=== PATIENT | male | born 1980 | race Caucasian/White ===

== ENCOUNTER → 2017-04-11 | Outpatient (CLI) | payer BC ==
--- NOTE | 2017-04-11 11:59 | EST ---
DATE OF SERVICE: 04/11/2017 AGE: 36Y SEX: M HT: 72" WT: 290 lbs. Protocol Alex: X Other: Stress Stage: 3 Dur. of Exercise: 9:22 *Heart Rate Blood Pressure *Rest: 90 Rest: 127/86 * *Max. Achieved: 168 Maximum BP: 187/82 85% PMHR: 156 100% PMHR: 183 *METS: 10.9 INDICATIONS: Chest pain. MEDICATIONS: Prevacid, Percocet, allergy pill. STRESS DATA: Pretesting physical examination showed a heart rate of 90, pressure is 127/86mmHg. Baseline EKG shows sinus rhythm. The patient exercised on the treadmill according to Alex protocol for a total of 9 minutes and achieved 11 of METs with max heart rate was 168, which is about 91% of maximum predicted heart rate. Maximum blood pressure was 187/82 mmHg. Clinically, the patient did not have any symptoms of chest pain or discomfort during the testing or in the recovery and the EKG did not show any significant ST or T-wave abnormalities consistent with ischemia. CONCLUSION: 1. Excellent exercise capacity. 2. Normal EKG in response to exercise. 3. Essentially normal exercise treadmill stress test for this gentleman.
== END | disposition home or self-care (01) ==
LOC: RADNMMAIN 10:39
PROVIDERS: ATTEND Internal Medicine
DX: R07.9 Chest pain, unspecified (principal)
CPT/HCPCS: 93017

== ENCOUNTER → 2018-08-25 | Outpatient (CLI) | payer BC ==
[2018-08-25 14:32] VITALS: BP 138/81; PULSE 79; RESP 18
--- NOTE | 2018-08-26 07:40 | P.PAINCN ---
History of Present Illness - Reason for Consult Consult date: 08/25/18 - History of Present Illness This is the initial consultation visit for this 77 years old male with a chronic history of severe low back pain with radiation to the right lower extremity, the pain started 3 years ago on his been constant all the time, aggravated with any activity, he feels constant pain associated with some burning sensation in the right lower extremity, he reports that he had previous back injury when he was in high school he used to play football, he had an incident of back pain, which was improved with the medication treatment, 3 years ago he started having the pain without any initiating event, the intensity of the pain as 6/10 increased to 9/10 with any activity, his been on medication management Percocet 10/325 every 8 hours, and this medication helping to some degree but he is looking for a better way to control the pain, he denies any motor or sensory deficit he denies any change in the bowel movement or urination, he denies any fever or night sweats. Past Medical History Past Medical History: No Reported History History of Any Multi-Drug Resistant Organisms: None Reported Past Surgical History: No Surgical Hx Reported Past Anesthesia/Blood Transfusion Reactions: No Reported Reaction Smoking Status: Never smoker Medications and Allergies Home Medications Medication Instructions Recorded Confirmed Type ALPRAZolam [Xanax] 1 tab PO HS 08/25/18 08/25/18 History Lansoprazole [Prevacid] 1 tab PO DIRECTED 08/25/18 08/25/18 History oxyCODONE-APAP 10-325MG [Percocet 1 tab PO TID 08/25/18 08/25/18 History 10-325 mg] Allergies Allergy/AdvReac Type Severity Reaction Status Date / Time No Known Allergies Allergy Verified 08/25/18 14:17 Physical Exam Vitals: Vital Signs Pulse Resp BP Pulse Ox 08/25/18 14:22 79 18 138/81 98 Social history : not smoker , NO ETOH , NO Illegal drugs use . Review of Systems : 1- Constitutional : no chills , no fever , no night sweats , 2- Ears : no ear discharge , no change in hearing 3-Nose, Mouth ,Throat ; no bleeding gums, no sore throat , no epistaxis , 4-Cardiovascular : Denies chest pain, , no orthopnea , no palpitation 5-Respiratory : Denies cough , no dyspnea , no hemoptysis 6-Gastrointestinal :, no change in bowel habits , no coffee- ground emesis . 7-Genitourinary : No hematuria , no discharge , no incontinence, 8-Musculoskeletal : No gait dysfunction , report low back pain with radiation to the right lower extremity 9- Neurological : no ataxia , no tremor , no sezure , 10-Psychatric , no suicidal ideation no hallucination 11- Endocrine : no cold intolerence , no polyuria , no polydypsia , 12-Hematologic : no easy bleeding , no easy brusing , 13-Allergic / immunology : no angioedema , no wheezing ,no allergic rhinitis 14-Integumentary : no brttle nails , no change hair / nails , no foot/leg ulcers . Physical Examinations : 1-Constitutional : Cooperative , not in acute distress . 2-HEENT : nech ; supple , no Lymphadenopathy , no Thyromegaly , :eyes , no icterus, no photophobia . ENT : , normal oropharynx , no Thrush 3- Respiratory : Chest clear to auscultations Bilaterally , no wheezing . 4- Cardiovascular : regular rate and rhythem , S1 , S2 , no S3 , no S4. 5- Gastrointestinal: abdomen soft no tenderness , no organomegally . 6- Genitourinary : Defferred . 7-Integumentary : No cellulitis , no ulcers , normal skin turgor , no cyanotic . 8- neurologic : Cranial nerve II to XII intact , no focal neurological deffecit 9-psychatric : alert , oriented X 3 , appropriate affect , intact judgment and insight . 10-Lymphatic : no Lymphadenopathy. 11- musculoskeltal: normal gait Lumber spine moter stegnth lower extremities ,thigh and legs 5/5 Right side , 5/5 Left side deep tendon reflexes : normal Knee Jerk , normal ankle Jerk Negative lumber facet Loading Test Range of motion of the lumbar spine Flexion 30 degrees, extension 10 degrees strait leg raising test , positive at 30 degree Right lower extremity, negative on the left side Fabere test positive RT and negative LT . Results Comments: MRI of the lumbar spine L5-S1 disc herniation Assessment and Plan Plan: Assessment and plan= lumbar radiculopathy at right L5-S1 dermatomal distribution , lumbar disc herniation. Patient will be good candidate, to have right- sided L5-S1 transforaminal epidural steroid injection .under fluoroscopy guidance Time with Patient: Greater than 30 PQRS Measure Charge Sheet Measure #130: Documentation of Current Meds in Medical Chart: Patient's medications documented in chart Measure #226: Tobacco Use: Screen & Cessation Intervention: Pt not a tobacco user Measure #111: Pneumonia Vaccination: Pneumococcal vaccine NOT administered or previously given Measure #47: Advance Care Plan: Advance care planning discussed & documented, pt chose/unable to give Measure #412: Opioid Treatment Agreement: No documentation of signed opioid treatment agreement Measure #408: Opioid Therapy Follow-up Evaluation: Patient had NO f/u eval minimum every 3 months during opioid therapy Measure #317: Preventitive Care & Scrn High Bld Press & F/U: Pre-hypertensive or hypertensive BP documented, pt will f/u with PCP Measure #128: Body Mass Index (BMI) Screening & Follow-up: BMI documented ABOVE normal parameters - f/u documented Measure #131: Pain Assessment & Follow-up: Pain positive & plan documented, Follow-up scheduled Measure #431: Unhealthy Alcohol Use Preventative Care & Scrn: Patient not identified as an unhealthy alcohol user PQRS Narrative: Smoking Status Never smoker Do You Want the Pneumonia No Vaccine AT THIS TIME? Blood Pressure 138/81 Pain Intensity [Generalized] 7 Scale Used Numeric (1 - 10) Hx Alcohol Use (MH) No Home Medications: Ambulatory Orders ALPRAZolam [Xanax] 1 tab PO HS 08/25/18 Lansoprazole [Prevacid] 1 tab PO DIRECTED 08/25/18 oxyCODONE-APAP 10-325MG [Percocet 10-325 mg] 1 tab PO TID 08/25/18
== END | disposition home or self-care (01) ==
LOC: PNWHC3 13:04
PROVIDERS: ATTEND Specialist
DX: M51.17 Intervertebral disc disorders with radiculopathy, lumbosacral region (principal); Z79.899 Other long term (current) drug therapy; Z79.891 Long term (current) use of opiate analgesic
CPT/HCPCS: 99211

== ENCOUNTER → 2018-09-14 | Day surgery (SDC) | payer BC ==
[2018-09-09 15:02] VITALS: BMI 37.2
[~2018-09-14] MED LIST: SODIUM CHLORIDE 0.9% 500 ML 500 ML IV ONE
[2018-09-14 06:55] VITALS: RESP 20; TEMP 97.9
--- NOTE | 2018-09-14 07:33 | P.PCN ---
Date of Procedure: 09/14/18 Procedure(s) Performed: DESCRIPTION OF PROCEDURE(S): PREOPERATIVE DIAGNOSIS: Lumbar radiculopathy POSTOPERATIVE DIAGNOSIS: Lumbar radiculopathy PROCEDURE 1. Transforaminal epidural steroid injection under fluoroscopic guidance RIGHT L4 5 2. Lumbar epidurogram ANESTHESIA: Local with 1% lidocaine 3 ml PROCEDURE INDICATION: The patient with low back pain and radiculopathy symptoms unresponsive to conservative treatment. PROCEDURE DESCRIPTION / TECHNIQUE: The patient was seen and identified in the preoperative area. Risks, benefits, complications, and alternatives were discussed with the patient. The patient agreed to proceed with the procedure and signed the consent. IV was started, and vital signs were stable. Patient was taken to the OR and time out was completed. The patient was placed in the prone position on procedure table and a pillow was placed under the abdomen to reduce lumbar lordosis. The lumbosacral area was prepped and draped in the usual sterile fashion. Vital signs were closely monitored during the procedure. Conscious sedation was used. Using oblique fluoroscopy, the chin of the ``Bart dog at RIGHT L4 pedicle and the skin and deeper tissues just below was localized with 1% lidocaine. Subsequently, a 22-gauge 3.5-inch spinal needle was advanced under a tunneled view fluoroscopic guidance just underneath the chin of the ``Bart dog RIGHT L4 Under lateral fluoroscopy, the needle was then advanced to the posterior border of the L4 5 interforaminal space. After negative aspiration of CSF and blood and with no paresthesias, 1 mL of Omnipaque-240 contrast dye was injected excellent epidurogram and outlining L2 nerve root. Subsequently, of the 10ml solution consisting of 10mg/ml dexamethasone with 1 ml PF normal saline, and 1 ml 0.25% marcaine , 3 ml injected at L4 5 space. At the end of the procedure , skin was cleansed, and bandages were applied. COMPLICATIONS: None COMMENTS: DISPOSITION / PLANS: The patient was placed in a supine position and transferred to the recovery area in a stable condition for observation. There was no evidence of lower extremity motor or sensory deficit after the procedure. Patient was discharged from the recovery room after meeting discharge criteria. Home discharge instructions were given to the patient by the staff. The patient was reexamined prior to discharge. Have the patient follow-up in the clinic to evaluate for further injections are further reaching
[2018-09-14 08:18] VITALS: BP 133/83; PULSE 71
--- NOTE | 2018-09-14 09:18 | FL ---
EXAMINATION TYPE: FL guided pain mgmt statistic DATE OF EXAM: 09/14/2018 HISTORY: LUMBAR TRANSFORAMINAL EPIDURAL STERIOD INJECTION 13 SEC FLUORO, 1 IMAGE SCANNED
== END ==
LOC: ORPAIN 06:35
PROVIDERS: ATTEND Hospitalist
DX: M51.16 Intervertebral disc disorders with radiculopathy, lumbar region (principal)
CPT/HCPCS: 64483; J1100; Q9966; 64484

== ENCOUNTER 2018-10-13 06:07 | Day surgery (SDC) | payer BC ==
[2018-10-08 15:08] VITALS: BMI 37.2
[~2018-10-13 06:07] MED LIST changes: -SODIUM CHLORIDE 0.9% 500 ML 500 ML IV ONE; +SODIUM CHLORIDE 0.9% 500 ML 500 ML IV SCH
[2018-10-13 06:48] VITALS: TEMP 97.8
--- NOTE | 2018-10-13 07:41 | P.PCN ---
Date of Procedure: 10/13/18 Procedure(s) Performed: PREOPERATIVE DIAGNOSIS:1- Lumbar radiculopathy. 2-lumbar herniated disc disease POSTOPERATIVE DIAGNOSIS: Same as pre-operative diagnosis PROCEDURE 1. Transforaminal epidural steroid injection under fluoroscopic guidance RIGHT L5-S1 2. Lumbar epidurogram ANESTHESIA: Local with 1% lidocaine 3 ml PROCEDURE INDICATION: The patient with low back pain and radiculopathy symptoms unresponsive to conservative treatment. PROCEDURE DESCRIPTION / TECHNIQUE: The patient was seen and identified in the preoperative area. Risks, benefits, complications, and alternatives were discussed with the patient. The patient agreed to proceed with the procedure and signed the consent. IV was started, and vital signs were stable. Patient was taken to the OR and time out was completed. The patient was placed in the prone position on procedure table and a pillow was placed under the abdomen to reduce lumbar lordosis. The lumbosacral area was prepped and draped in the usual sterile fashion. Vital signs were closely monitored during the procedure. Conscious sedation was used. Using oblique fluoroscopy, the chin of the ``Bart dog at RIGHT L5 pedicle and the skin and deeper tissues just below was localized with 1% lidocaine. Subsequently, a 22-gauge 5-inch spinal needle was advanced under a tunneled view fluoroscopic guidance just underneath the chin of the ``Bart dog RIGHT L5 Under lateral fluoroscopy, the needle was then advanced to the posterior border of the L5-S1 interforaminal space. After negative aspiration of CSF and blood and with no paresthesias, 1 mL of Omnipaque-240 contrast dye was injected excellent epidurogram and outlining nerve root. Subsequently, of the 10ml solution consisting of 40 mg depo-Medrol with 1 ml PF normal saline, injected at L5-S1 space. At the end of the procedure, skin was cleansed, and bandages were applied. COMPLICATIONS: None DISPOSITION / PLANS: The patient was placed in a supine position and transferred to the recovery area in a stable condition for observation. There was no evidence of lower extremity motor or sensory deficit after the procedure. Patient was discharged from the recovery room after meeting discharge criteria. Home discharge instructions were given to the patient by the staff. The patient was reexamined prior to discharge. Have the patient follow-up in the clinic to evaluate for further injections are further reaching
[2018-10-13] MEDS ORDERED: IV FLUID CONTINUATION 1,000 ML IV ONE (07:43)
[2018-10-13 07:48] VITALS: RESP 18
[2018-10-13 07:59] VITALS: BP 137/73; PULSE 63
--- NOTE | 2018-10-13 08:53 | FL ---
Fluoroscopy HISTORY: Pain 8 seconds fluoroscopy time supplied to the referring clinician. 1 intraoperative C-arm images docume nt the procedure. See dictated report from anesthesia.
== END 2018-10-13 08:00 | disposition home or self-care (01) ==
LOC: ORPAIN 06:07
PROVIDERS: ATTEND Specialist
DX: M51.16 Intervertebral disc disorders with radiculopathy, lumbar region (principal)
CPT/HCPCS: 64483; J1030; Q9966; 62323

== ENCOUNTER → 2018-11-23 | Outpatient (CLI) | payer BC ==
[2018-11-23 14:45] VITALS: BP 118/87; PULSE 94; RESP 16
--- NOTE | 2018-11-24 18:34 | P.PN ---
Subjective Progress Note Date: 11/23/18 This is the follow-up visit for this 38 years old male with a chronic history of severe low back pain with radiation to the right lower extremity,he is diagnosed with lumbar radiculopathy ,we have done right-sided transforaminal epidural steroid injection patient get excellent pain relief, and he is here for follow-up visit He continues to use Percocet 10/325 every 6 hours when necessary and he is getting prescription refills from his primary care, he denies any motor or sensory deficit he denies any change in bowel movement or urination Physical Examinations : 1-Constitutional : Cooperative , not in acute distress . 2-HEENT : nech ; supple , no Lymphadenopathy , no Thyromegaly , :eyes , no icterus, no photophobia . ENT : , normal oropharynx , no Thrush 3- Respiratory : Chest clear to auscultations Bilaterally , no wheezing . 4- Cardiovascular : regular rate and rhythem , S1 , S2 , no S3 , no S4. 5- Gastrointestinal: abdomen soft no tenderness , no organomegally . 6- Genitourinary : Defferred . 7-Integumentary : No cellulitis , no ulcers , normal skin turgor , no cyanotic . 8- neurologic : Cranial nerve II to XII intact , no focal neurological deffecit 9-psychatric : alert , oriented X 3 , appropriate affect , intact judgment and insight . 10-Lymphatic : no Lymphadenopathy. 11- musculoskeltal: normal gait Lumber spine moter stegnth lower extremities ,thigh and legs 5/5 Right side , 5/5 Left side deep tendon reflexes : normal Knee Jerk , normal ankle Jerk Negative lumber facet Loading Test Range of motion of the lumbar spine Flexion 30 degrees, extension 10 degrees strait leg raising test , positive at 30 degree Right lower extremity, negative on the left side Fabere test positive RT and negative LT . Results Comments: MRI of the lumbar spine L5-S1 disc herniation Assessment and Plan Plan: Assessment and plan= lumbar radiculopathy at right L5-S1 dermatomal distribution , lumbar disc herniation. Patient will be good candidate, to have repeat right-sided L5-S1 transforaminal epidural steroid injection .under fluoroscopy guidanc - PQRS measures = - Patient's medications are documented in the chart. -Tobacco use is negative and counseling.Given. -Patient's has not received pneumococcal vaccine. -Advanced care planning discussed, patient not eligible. -Opiate contract not signed -There is no need for medication refill -Pain positive and follow-up visit/procedure is scheduled. -Patient's blood pressure measured [ 118/87 ] , and documented in the record ,and patient will follow up with the primary care. -Patient's weight was measured and body mass index [ 39.8] above the normal limits and counseling was done. and patient instructed to follow-up with the primary care physician. -Patient was not identified as an unhealthy alcohol user Objective - Vital Signs Vital signs: Vital Signs Temp Pulse 94 11/23/18 14:42 Resp 16 11/23/18 14:42 BP 118/87 11/23/18 14:42 Pulse Ox 99 11/23/18 14:42 Intake & Output 11/23/18 11/24/18 11/24/18 18:59 06:59 18:59 Weight 140.614 kg
== END ==
LOC: PNWHC3 14:00
PROVIDERS: ATTEND Specialist
DX: M51.17 Intervertebral disc disorders with radiculopathy, lumbosacral region (principal); Z79.891 Long term (current) use of opiate analgesic
CPT/HCPCS: 99211

== ENCOUNTER 2018-12-03 06:15 | Day surgery (SDC) | payer BC ==
[2018-12-02 12:08] VITALS: BMI 39.8
[2018-12-03 06:47] VITALS: RESP 16; TEMP 97.6
[2018-12-03] MEDS ORDERED: LIDOCAINE 1% 20 ML VIAL (10MG/ML) FOR IV START INTRADERMA ONE (06:53)
[2018-12-03] MEDS ORDERED: LACTATED RINGERS 1,000 ML IV ONE ×2 (06:53→07:27)
--- NOTE | 2018-12-03 07:20 | P.PCN ---
Date of Procedure: 12/03/18 Procedure(s) Performed: PREOPERATIVE DIAGNOSIS:1- Lumbar radiculopathy. 2-lumbar herniated disc disease POSTOPERATIVE DIAGNOSIS: Same as pre-operative diagnosis PROCEDURE 1. Transforaminal epidural steroid injection under fluoroscopic guidance RIGHT L5-S1 2. Lumbar epidurogram ANESTHESIA: Moderate Sedations with Vesred 2 mg ,and Fentanyle 100 mcg , and Local infiltration with 1% lidocaine 3 ml PROCEDURE INDICATION: The patient with low back pain and radiculopathy symptoms unresponsive to conservative treatment. PROCEDURE DESCRIPTION / TECHNIQUE: The patient was seen and identified in the preoperative area. Risks, benefits, complications, and alternatives were discussed with the patient. The patient agreed to proceed with the procedure and signed the consent. IV was started, and vital signs were stable. Patient was taken to the OR and time out was completed. The patient was placed in the prone position on procedure table and a pillow was placed under the abdomen to reduce lumbar lordosis. The lumbosacral area was prepped and draped in the usual sterile fashion. Vital signs were closely monitored during the procedure. Conscious sedation was used. To decrease patient"s anxiety. Using oblique fluoroscopy, the chin of the ``Bart dog at RIGHT L5 pedicle and the skin and deeper tissues just below was localized with 1% lidocaine. Subsequently, a 22-gauge 5-inch spinal needle was advanced under a tunneled view fluoroscopic guidance just underneath the chin of the ``Bart dog RIGHT L5 Under lateral fluoroscopy, the needle was then advanced to the posterior border of the L5-S1 interforaminal space. After negative aspiration of CSF and blood and with no paresthesias, 1 mL of Omnipaque-240 contrast dye was injected excellent epidurogram and outlining nerve root. Subsequently, of the 10ml solution consisting of 80 mg depo-Medrol with 1 ml PF normal saline, injected at L5-S1 space. At the end of the procedure, skin was cleansed, and bandages were applied. COMPLICATIONS: None DISPOSITION / PLANS: The patient was placed in a supine position and transferred to the recovery area in a stable condition for observation. There was no evidence of lower extremity motor or sensory deficit after the procedure. Patient was discharged from the recovery room after meeting discharge criteria. Home discharge instructions were given to the patient by the staff. The patient was reexamined prior to discharge. Have the patient follow-up in the clinic to evaluate for further injections are further reaching
[2018-12-03 07:47] VITALS: BP 116/73; PULSE 71
--- NOTE | 2018-12-03 13:52 | FL ---
Fluoroscopy INDICATION: Pain FINDINGS: Fluoroscopy time: 14 seconds. Images obtained: 2. IMPRESSIONS: 1. Documentation of fluoroscopy.
== END 2018-12-03 07:57 | disposition home or self-care (01) ==
LOC: ORPAIN 06:15
PROVIDERS: ATTEND Specialist
DX: M51.16 Intervertebral disc disorders with radiculopathy, lumbar region (principal); Z79.1 Long term (current) use of non-steroidal anti-inflammatories (NSAID)
CPT/HCPCS: 64483; J2250; J1030; J3010; Q9966; 99152

== ENCOUNTER → 2018-12-29 | Outpatient (CLI) | payer BC ==
[2018-12-29 11:22] VITALS: BP 132/97; PULSE 76; RESP 16; TEMP 97.8
--- NOTE | 2018-12-29 11:48 | P.PN ---
Subjective Progress Note Date: 12/29/18 Mr. Castro is a 38-year-old gentleman with chronic low back pain. He presents today as a follow-up. He has had a series of 3 transforaminal epidural steroid injection on the right side for his low back pain. He continues to complain of right-sided low back pain which occasionally shoots down the leg. He reports his pain is aggravated when he wakes up in the morning or try to roll out of bed he finds that the pain is worse at that time. He continues to work full- time. He denies any weakness in his right leg from the pain. He denies any bowel or bladder incontinence. He has been going through this for about 4 years. He has been on previous pain medications for many years and has been off them for at least 3 months now. He does not want low back that way. He has not seen a surgeon for his pain. He has been in physical therapy for greater than 6 weeks time. Objective - Exam General: Awake and alert oriented 3 no distress Respiratory exam: No audible wheezing no accessory muscle usage Cardiovascular exam: regular rate, palpable bilateral pulses, no lower extremity edema Abdominal exam: No distention nontender to palpation Cervical spine: Normal alignment, Spurling's negative, facet loading negative Lumbar spine: Loss of lumbar lordosis, normal alignment, tender to palpation over bilateral paraspinal muscles, facet loading is positive on the right. Straight leg raise is positive on the right at about 60 Sacroiliac joints: Nontender to palpation, MYLES is negative, Gaenselon negative Neuro exam: Normal sensation in bilateral upper extremities, deep tendon reflexes are 2+ bilateral upper extremities. Normal sensation in bilateral lower extremities. 1+ right Achilles compared to 2+ on the left. 1+ patellar reflex on the right compared to 2+ in the left. Psych exam: Cooperative, appropriate mood Assessment and Plan Assessment: #1 lumbar radiculopathy #2 lumbar spondylosis without myelopathy Plan: After examination and discussion with the patient I believe that we should attempt to do a diagnostic lumbar medial branch block at L4 5 and L5-S1 levels. I discussed with him that he may need to seek out surgical advice if this does not help. He has been in physical therapy and has been on chronic opioid medications without long-term relief. If he does not get relief from the diagnostic test that we should refer him to see a surgeon. If he does get relief I have discussed with him a three-step process to potentially do a radiofrequency ablation.
== END | disposition home or self-care (01) ==
LOC: PNWHC3 11:02
PROVIDERS: ATTEND Hospitalist
DX: G89.29 Other chronic pain (principal); M54.5 Low back pain; M47.26 Other spondylosis with radiculopathy, lumbar region; M40.56 Lordosis, unspecified, lumbar region; Z79.891 Long term (current) use of opiate analgesic
CPT/HCPCS: 99211

== ENCOUNTER 2019-01-11 06:17 | Day surgery (SDC) | payer BC ==
[2019-01-06 15:00] VITALS: BMI 38.5
[2019-01-11 06:35] VITALS: RESP 16; TEMP 97.8
[2019-01-11] MEDS ORDERED: LACTATED RINGERS 1,000 ML IV ONE (06:40)
--- NOTE | 2019-01-11 07:26 | P.PCN ---
Date of Procedure: 01/11/19 Procedure(s) Performed: PREOPERATIVE DIAGNOSIS : 1- Lumbar spondylosis with Facet Arthropathy without myelopathy . 2- Lumber radiculopathy POSTOPERATIVE DIAGNOSIS: 1- Lumbar spondylosis with Facet Arthropathy without myelopathy . 2- Lumber radiculopathy PROCEDURE: Diagnostic Right L3 -4 , L4 -5 , and L5-S1 medial branch block under fluoroscopy ANESTHESIA: moderate sedation with intravenous Versed 2 mg and Fentanyl 50 mcg. EBL: Minimal COMPLICATION: None. IV FLUIDS: 100 mL of normal saline. PROCEDURE INDICATION: Chronic low back pain secondary to Facet arthropathy unresponsive to conservative treatment. PROCEDURE DESCRIPTION: the patient was seen and identified in the preop holding area , risks and benefits and possible complications of the procedure and alternative were discussed with the patient, and the patient agreed to proceed with the procedure and signed the consent IV was started and vital signs monitored during the procedure and fluoroscopy was used to maximize the benefit and accuracy of the needle placement, and sedation was given to decrease patient anxiety, patient was taken to the procedure room and placed in prone position vital signs monitored in the back prepped with chlorhexidine X3 then under strict sterile technique using a right oblique fluoroscopy ,the junction of the transverse process and the superior articulating process of the right L3- 4 , L4- 5, and L5-S1 vertebra which corresponding to the fluoroscopy image of the eye of the Bart dog on the block side for the medial branches and subsequently , after local infiltration of skin and subcu tissuies with Ropivacaine 0.5 % , one mL at each level , then 22-gauge Quincke-type needles , 3 needle was used , each one of them placed at the junction of the base of the transverse process and the superior articular process at the appropriate level, and the needle was advanced until the periosteum contacted, needle placement confirmed with AP oblique and lateral view and after appropriate needle placement confirmed, and after negative aspiration for heme and CSF and there was no paresthesia 1-1/2 mL of Ropivacaine 0.5% mixed with 40 mg Depo-Medrol , then half mL injected at each level after negative aspiration . At the end of the procedure and the needles removed and a bandage applied after the skin was cleaned the cleaning solution patient taken to recovery room in stable condition and monitors in the recovery room for 20-30 minutes and discharged home in stable condition after discharge criteria met and patient will follow up with the pain clinic in 2-4 weeks . (Next time we should use 5 inches needles )
[2019-01-11] MEDS ORDERED: IV FLUID CONTINUATION 1,000 ML IV ONE (07:31)
[2019-01-11 07:45] VITALS: BP 113/73; PULSE 72
--- NOTE | 2019-01-11 08:00 | FL ---
EXAMINATION TYPE: FL guided pain mgmt statistic DATE OF EXAM: 01/11/2019 CLINICAL HISTORY: Low back pain. TECHNIQUE: Fluoroscopy. COMPARISON: None. FINDINGS: Fluoroscopic guidance was provided during pain relief procedure performed by Dr. Mccauley . A total of 8 seconds of fluoroscopic time was utilized during the procedure and two spot images ar e acquired. Images acquired shows needle localization of the lumbar spine at multiple levels. IMPRESSION: As Above.
== END 2019-01-11 08:11 | disposition home or self-care (01) ==
LOC: ORPAIN 06:17
PROVIDERS: ATTEND Specialist
DX: G89.29 Other chronic pain (principal); M47.26 Other spondylosis with radiculopathy, lumbar region; M51.36 Other intervertebral disc degeneration, lumbar region
CPT/HCPCS: 64493; 64494; 64495; J2250; J1030; J3010

== ENCOUNTER 2019-01-25 06:22 | Day surgery (SDC) | payer BC ==
[2019-01-21 09:43] VITALS: BMI 38.5
--- NOTE | 2019-01-25 06:47 | P.PCN ---
Date of Procedure: 01/25/19 Description of Procedure: PREOPERATIVE DIAGNOSIS : 1- Lumbar spondylosis with Facet Arthropathy without myelopathy . 2- Lumber radiculopathy POSTOPERATIVE DIAGNOSIS: 1- Lumbar spondylosis with Facet Arthropathy without myelopathy . 2- Lumber radiculopathy PROCEDURE: Diagnostic Right L3 -4 , L4 -5 , and L5-S1 medial branch block under fluoroscopy #2 ANESTHESIA: moderate sedation with intravenous Versed 2 mg and Fentanyl 50 mcg. EBL: Minimal COMPLICATION: None. IV FLUIDS: 100 mL of normal saline. PROCEDURE INDICATION: Chronic low back pain secondary to Facet arthropathy unresponsive to conservative treatment. 80% relief with first lumbar medial branch block of L3-L4, L4-L5, L5-S1. PROCEDURE DESCRIPTION: the patient was seen and identified in the preop holding area , risks and benefits and possible complications of the procedure and alternative were discussed with the patient, and the patient agreed to proceed with the procedure and signed the consent IV was started and vital signs monitored during the procedure and fluoroscopy was used to maximize the benefit and accuracy of the needle placement, and sedation was given to decrease patient anxiety, patient was taken to the procedure room and placed in prone position vital signs monitored in the back prepped with chlorhexidine X3 then under strict sterile technique using a right oblique fluoroscopy ,the junction of the transverse process and the superior articulating process of the right L3- 4 , L4 - 5, and L5-S1 vertebra which corresponding to the fluoroscopy image of the eye of the Bart dog on the block side for the medial branches and subsequently , after local infiltration of skin and subcutaneous tissue with Ropivacaine 0.5 % , one mL at each level ,then 22-gauge Quincke-type needles , 3 needle was used , each one of them placed at the junction of the base of the transverse process and the superior articular process at the appropriate level, and the needle was advanced until the periosteum contacted, needle placement confirmed with AP oblique and lateral view and after appropriate needle placement confirmed, and after negative aspiration for heme and CSF and there was no paresthesia 1-1/2 mL of Ropivacaine 0.5% mixed with 40 mg Depo-Medrol , then half mL injected at each level after negative aspiration At the end of the procedure and the needles removed and a bandage applied after the skin was cleaned the cleaning solution patient taken to recovery room in stable condition and monitors in the recovery room for 20-30 minutes and discharged home in stable condition after discharge criteria met and patient will follow up with the pain clinic in 2-4 weeks.
--- NOTE | 2019-01-25 06:50 | P.GSHP ---
History of Present Illness H&P Date: 01/25/19 38-year-old male presents for right lumbar medial branch blocks L3-L4, L4-L5, L5-S1. #2 of 2. 80% relief with first initial medial branch block. Physical Exam : CVS: Regular rate and rhythm, no peripheral edema Pulmonary: Nonlabored, no wheezing Plan: Proceed with procedures plan today. Schedule for right radio frequency ablation Past Medical History Past Medical History: Musculoskeletal Disorder Additional Past Medical History / Comment(s): back pain History of Any Multi-Drug Resistant Organisms: None Reported Past Surgical History: No Surgical Hx Reported Additional Past Surgical History / Comment(s): pain procedure Past Anesthesia/Blood Transfusion Reactions: No Reported Reaction Past Psychological History: No Psychological Hx Reported Smoking Status: Never smoker Past Alcohol Use History: Rare Past Drug Use History: None Reported - Past Family History Mother Family Medical History: No Reported History Medications and Allergies Home Medications Medication Instructions Recorded Confirmed Type ALPRAZolam [Xanax] 1 mg PO HS 08/25/18 01/25/19 History Lansoprazole [Prevacid] 30 mg PO DAILY PRN 08/25/18 01/25/19 History Citalopram Hydrobromide [CeleXA] 20 mg PO DAILY 10/08/18 01/25/19 History Acetaminophen [Tylenol] 1,000 mg PO DAILY PRN 11/23/18 01/25/19 History Meloxicam [Mobic] 15 mg PO DAILY PRN 11/23/18 01/25/19 History Cetirizine HCl/Pseudoephedrine 1 each PO DAILY 12/02/18 01/25/19 History [Zyrtec-D Tablet] Allergies Allergy/AdvReac Type Severity Reaction Status Date / Time No Known Allergies Allergy Verified 01/25/19 06:44
[2019-01-25 06:53] VITALS: TEMP 96.6
[2019-01-25] MEDS ORDERED: LACTATED RINGERS 1,000 ML IV ONE ×2 (07:00)
[2019-01-25] MEDS ORDERED: SODIUM CHLORIDE 0.9% 500 ML 500 ML IV SCH (07:00)
[2019-01-25] MEDS ORDERED: IV FLUID CONTINUATION 1,000 ML IV ONE (07:25)
[2019-01-25 07:29] VITALS: PULSE 67; RESP 16
--- NOTE | 2019-01-25 07:36 | FL ---
EXAMINATION TYPE: FL guided pain mgmt statistic DATE OF EXAM: 01/25/2019 FLUOROSCOPY Fluoroscopy time of 30 seconds was used during lumbar facet pain management procedure. 1 image/s doc ument/s the procedure.
[2019-01-25 07:42] VITALS: BP 123/77
== END 2019-01-25 08:00 | disposition home or self-care (01) ==
LOC: ORPAIN 06:22
PROVIDERS: ATTEND Anesthesiology
DX: G89.29 Other chronic pain (principal); M47.26 Other spondylosis with radiculopathy, lumbar region; M51.16 Intervertebral disc disorders with radiculopathy, lumbar region; Z79.899 Other long term (current) drug therapy
CPT/HCPCS: 64493; 64494; 64495; J2250; J3301; J3010; 99152

== ENCOUNTER → 2019-02-08 | Outpatient (CLI) | payer BC ==
[2019-02-08 10:51] VITALS: BP 143/94; PULSE 68; RESP 18
--- NOTE | 2019-02-08 11:11 | P.PAINPG ---
Subjective Progress Note Date: 02/08/19 Mr. Castro is a pleasant 38-year-old gentleman who presents today with chief complaint of back pain. He is status post 2 medial branch blocks in the right side and reports excellent relief from the medial branch blocks. He reports that his pain along low back and into the right buttock is was significantly improved with the injections. He is interested in moving forward the ablation. This point he is unchanged from previous visits. He denies any numbness or tingling into his foot or any weakness in his foot. He denies any bowel or bladder incontinence. He continues to use medications as prescribed by his primary care doctor. Objective - Vital Signs Vital signs: Vital Signs Temp Pulse 68 02/08/19 10:41 Resp 18 02/08/19 10:41 BP 143/94 02/08/19 10:41 Pulse Ox 95 02/08/19 10:41 Intake & Output 02/07/19 02/08/19 02/08/19 18:59 06:59 18:59 Weight 140.614 kg - Exam General: Awake and alert oriented 3 no distress Respiratory exam: No audible wheezing no accessory muscle usage Cardiovascular exam: regular rate, palpable bilateral pulses, no lower extremity edema Abdominal exam: No distention nontender to palpation Cervical spine: Normal alignment, Spurling's negative, facet loading negative Lumbar spine: Loss of lumbar lordosis, normal alignment, tender to palpation over bilateral paraspinal muscles, facet loading is positive right Straight leg raise is negative. Sacroiliac joints: Nontender to palpation, MYLES is negative, Gaenselon negative Neuro exam: Normal sensation in bilateral upper extremities, deep tendon refl exes are 2+ bilateral upper extremities. Normal sensation in bilateral lower extremities. Deep tendon reflexes are 2+ in lower extremities Psych exam: Cooperative, appropriate mood Assessment and Plan Assessment: #1 lumbar spondylosis without myelopathy #2 obesity Plan: At this point discussed radiofrequency ablation of the right lumbar medial branch blocks at the patient. I discussed the risks, benefits, and alternatives to the procedure. I advised him that he should participate in physical therapy after having the ablation in order to strengthen his lumbar spine. Patient is in agreement. We will give him a prescription for physical therapy after the ablation. We will schedule him for right-sided L3 4, C4 5, 51 ablation with sedation. PQRS Measure Charge Sheet Measure #130: Documentation of Current Meds in Medical Chart: Patient's medications documented in chart Measure #226: Tobacco Use: Screen & Cessation Intervention: Pt not a tobacco user Measure #47: Advance Care Plan: Advance care planning discussed & documented, pt chose/unable to give Measure #131: Pain Assessment & Follow-up: Pain positive & plan documented, Follow-up scheduled PQRS Narrative: Smoking Status Never smoker Do You Want the Pneumonia No Vaccine AT THIS TIME? Blood Pressure 143/94 Pain Intensity [Right Lower 2 Back] Scale Used Numeric (1 - 10) Hx Alcohol Use (MH) No Home Medications: Ambulatory Orders ALPRAZolam [Xanax] 1 mg PO HS 08/25/18 Lansoprazole [Prevacid] 30 mg PO DAILY PRN 08/25/18 Citalopram Hydrobromide [CeleXA] 20 mg PO DAILY 10/08/18 Acetaminophen [Tylenol] 1,000 mg PO DAILY PRN 11/23/18 Meloxicam [Mobic] 15 mg PO DAILY PRN 11/23/18 Cetirizine HCl/Pseudoephedrine [Zyrtec-D Tablet] 1 each PO DAILY 12/02/18 Controlled Substance Measures - Controlled Substance Measures Is patient prescribed a controlled substance at discharge?: No When asked, does pt state using other controlled substances?: No
== END ==
LOC: PNWHC3 10:31
PROVIDERS: ATTEND Hospitalist
DX: M47.816 Spondylosis without myelopathy or radiculopathy, lumbar region (principal); E66.9 Obesity, unspecified; Z79.899 Other long term (current) drug therapy; Z68.39 Body mass index [BMI] 39.0-39.9, adult
CPT/HCPCS: 99211

== ENCOUNTER 2019-02-22 08:14 | Day surgery (SDC) | payer BC ==
[2019-02-17 14:23] VITALS: BMI 39.8
[2019-02-22 08:31] VITALS: RESP 16; TEMP 95.6
[2019-02-22] MEDS ORDERED: IV FLUID CONTINUATION 1,000 ML IV ONE (08:36)
[2019-02-22] MEDS ORDERED: LIDOCAINE 1% 20 ML VIAL (10MG/ML) FOR IV START INTRADERMA ONE (08:36)
--- NOTE | 2019-02-22 08:39 | P.PCN ---
Date of Procedure: 02/22/19 Description of Procedure: PREOPERATIVE DIAGNOSIS: Lumbar Facet Arthropathy. POSTOPERATIVE DIAGNOSIS: Lumbar Facet Arthropathy. PROCEDURES : right Radiofrequency thermocoagulation, L3, L4, and L5 medial branch, with fluoroscopic guidance ANESTHESIA: IV sedation with versed and fentanyl and local infiltration with lidocaine 1% 10 ml EBL: Minimal PROCEDURE INDICATION: The patient with low back pain secondary to lumbar facet arthropathy who had more than 50% relief of pain with previous diagnostic lumbar medial branch block with local anesthetic. PROCEDURE DESCRIPTION / TECHNIQUE: The patient was seen and identified in the preoperative area. Risks, benefits, complications, including but not limited to risk of infection ,bleeding , allergic reactions to the medications and no complete pain relief , and alternatives were discussed with the patient, the patient agreed to proceed with the procedure and signed the consent. IV was started. Vital signs remained stable throughout the procedure. Patient was taken to the OR and time out was completed. The patient was placed in the prone position on the procedure table. The lumber area was prepped and draped in the usual sterile fashion. . Vital signs were closely monitored during the procedure .IV sedation was used during the procedure to decrease patient anxiety. Using AP and then oblique fluoroscopy, the eye of the Bart dog corresponding to the connection between the superior and transverse articular processes of right L3, L4, and L5 were identified, marked, and localized with 1% lidocaine. Subsequently, a 20 [id number] radiofrequency cannula with a 10-mm active tip was advanced guided by fluoroscopy to each of the eyes of the Bart dog at L3, L4, and L5. Each site then underwent sensory testing at 50 Hz and 0 to 1 volt and motor testing at 2.5 Hz and 0 to 3 volt with local stimulation, but no radicular symptoms down the legs. Thereafter the L3, L4, and L5 sites underwent radiofrequency thermocoagulation at 80 degrees celsius for 90 seconds after injecting 0.5 ml of PF lidocaine 1%. Then after the thermocoagulation was done , 1 ml of the block solution containing marcaine 0.5% was injected at the right L3 , L4 , and L5, levels after negative aspiration of CSF and blood and with no paresthesias. Cannulas were retracted. At the end of the procedure, the skin was cleansed and bandages were applied. COMPLICATIONS: No acute complications. DISPOSITION / PLANS: The patient was placed in a supine position and transferred to the recovery area in a stable condition for observation and was discharged from the recovery room after meeting discharge criteria. Home discharge instructions given to the patient by the staff. The patient was reexamined prior to discharge. We will perform the other side in 4 weeks or have the patient follow-up in the clinic
[2019-02-22] MEDS ORDERED: LACTATED RINGERS 1,000 ML IV ONE ×2 (09:10)
[2019-02-22 09:25] VITALS: BP 134/78; PULSE 66
--- NOTE | 2019-02-22 13:11 | FL ---
EXAMINATION TYPE: FL guided pain mgmt statistic DATE OF EXAM: 02/22/2019 FLUOROSCOPY Fluoroscopy time of 20 seconds was used during right-sided lumbar radiofrequency ablation. 1 image/s document/s the procedure.
== END 2019-02-22 09:40 | disposition home or self-care (01) ==
LOC: ORPAIN 08:14
PROVIDERS: ATTEND Hospitalist
DX: M47.816 Spondylosis without myelopathy or radiculopathy, lumbar region (principal); E66.9 Obesity, unspecified; Z68.39 Body mass index [BMI] 39.0-39.9, adult; Z79.899 Other long term (current) drug therapy
CPT/HCPCS: 64635; 64636; J2001

== ENCOUNTER → 2020-08-07 | Outpatient (CLI) | payer OTHER ==
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
== END | disposition home or self-care (01) ==
LOC: RADXRMAIN 14:02
PROVIDERS: ATTEND Family Medicine
DX: R07.1 Chest pain on breathing (principal); S39.92XA Unspecified injury of lower back, initial encounter
CPT/HCPCS: 71046; 72110

== ENCOUNTER 2022-11-13 04:53 | Emergency (ER) | payer BC ==
[2022-11-13 05:02] VITALS: TEMP 97.9
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
[2022-11-13] MEDS ORDERED: AZELASTINE 137MCG/SPRAY NASAL ONE (06:30)
[2022-11-13] MEDS ORDERED: methylPREDNISolone SOD SUCCI 125 MG/2 ML VIAL IM ONE (06:30)
--- NOTE | 2022-11-13 06:32 | ED ---
General Adult HPI - General Chief complaint: Upper Respiratory Infection Stated complaint: CONSUELO Source: patient, RN notes reviewed Mode of arrival: ambulatory Limitations: no limitations - History of Present Illness Initial comments: Patient is a 42-year-old male presenting to the emergency room with complaints of difficulty taking in a deep breath and the inability to breathe out of his nose. He states that he has had a worsening of his chronic symptoms over the last 10 days. He complains of chronic nasal drainage but increase in nasal pressure, cough and congestion. He completed a virtual visit with provider and was prescribed amoxicillin yesterday he started the treatment and has had 2 doses but continues to feel like he has not adequately breathing. He denies any chest pain, shortness of breath not related to feeling of poor inspiration, abdominal pain, nausea, vomiting, headache not related to sinus pressure, dizziness, fevers or chills. He does a past medical history significant for seasonal allergies with sinusitis. He was previously told that he should have sinus surgery but deferred at that time. He also suffers from chronic back pain. - Related Data Home Medications Medication Instructions Recorded Confirmed ALPRAZolam [Xanax] 1 mg PO HS 08/25/18 02/22/19 Lansoprazole [Prevacid] 30 mg PO DAILY PRN 08/25/18 02/22/19 Citalopram Hydrobromide [CeleXA] 20 mg PO DAILY 10/08/18 02/22/19 Acetaminophen [Tylenol] 1,000 mg PO DAILY PRN 11/23/18 02/22/19 Meloxicam [Mobic] 15 mg PO DAILY PRN 11/23/18 02/22/19 Cetirizine HCl/Pseudoephedrine 1 each PO DAILY 12/02/18 02/22/19 [Zyrtec-D Tablet] Allergies Allergy/AdvReac Type Severity Reaction Status Date / Time cephalexin [From Keflex] Allergy Unknown Verified 11/13/22 04:58 Review of Systems ROS Statement: Those systems with pertinent positive or pertinent negative responses have been documented in the HPI. ROS Other: All systems not noted in ROS Statement are negative. Past Medical History Past Medical History: Musculoskeletal Disorder Additional Past Medical History / Comment(s): back pain History of Any Multi-Drug Resistant Organisms: None Reported Past Surgical History: Back Surgery Additional Past Surgical History / Comment(s): pain procedure Past Anesthesia/Blood Transfusion Reactions: No Reported Reaction Past Psychological History: No Psychological Hx Reported Smoking Status: Never smoker Past Alcohol Use History: Occasional Past Drug Use History: Marijuana - Past Family History Mother Family Medical History: No Reported History General Exam - General Exam Comments Initial Comments: GENERAL: No acute distress, well developed, well nourished. HEENT: Normocephalic, atraumatic. Pupils equal, round, reactive to light. Moist mucous membranes. Bilateral turbinates with moderate edema and erythema left greater than right but patent. LUNGS: No respiratory distress. Clear to auscultation, no adventitious sounds, no use of accessory muscles. HEART: Regular rate and rhythm without murmur, rub, or gallop. ABDOMEN: Normal bowel sounds. Soft, non-tender, non-distended. BACK: Normal inspection. EXTREMITIES: No edema. No tenderness. Moves all extremities. NEUROLOGIC: Alert & oriented x 3. CN II-XII grossly intact. PSYCHIATRIC: Normal affect and behavior. DERMATOLOGIC: Skin intact, without rashes or lesions noted. Limitations: no limitations Course Vital Signs 11/13/22 04:59 Temperature 97.9 F Pulse Rate 75 Respiratory 16 Rate Blood Pressure 146/80 O2 Sat by Pulse 98 Oximetry Medical Decision Making - Medical Decision Making Was pt. sent in by a medical professional or institution? @ -No Did you speak to anyone other than the patient for history? @ -No Did you review nursing and triage notes? @ -Yes and agree Were old charts reviewed? @ -No Differential Diagnosis? @ -Differential Dyspnea: Coronary syndrome, arrhythmia, tamponade, asthma, COPD, pulmonary embolism, pneumonia, pneumothorax, pulmonary effusion, anaphylaxis, diabetic ketoacidosis, flailed chest, pulmonary contusion, diaphragmatic rupture, anemia, neuromuscular, this is not meant to be an all-inclusive list. EKG interpreted by me (3pts min.)? @ -None X-rays interpreted by me (1pt min.)? @ -Chest x-ray interpreted by me demonstrates no infiltrates or consolidation. No acute cardiopulmonary process. Radiologist report also reviewed. CT interpreted by me (1pt min.)? @ -None U/S interpreted by me (1pt. min.)? @ -None What testing was considered but not performed? (CT, X-rays, U/S, labs)? Why? @ No What meds were considered but not given? Why? @ -None Did you discuss the management of the patient with other professionals? @ -No Did you reconcile home meds? @ -Reviewed but not reconciled Was smoking cessation discussed for >3mins.? @ -Not applicable Was critical care preformed (if so, how long)? @ -None Were there social determinants of health that impacted care today? How? (Homeles sness, low income, unemployed, alcoholism, drug addiction, transportation, low edu. Level, literacy, decrease access to med. care, [facility], rehab)? @ -No Was there de-escalation of care discussed even if they declined? (Discuss DNR or withdrawal of care, Hospice)? @ -No What co-morbidities impacted this encounter? (DM, HTN, Smoking, COPD, CAD, Cancer, CVA, Hep., AIDS, mental health diagnosis, sleep apnea, morbid obesity)? @ -Chronic sinusitis Was patient admitted / discharged? @ -Patient presents the emergency room with complaints of inability to take in a deep breath increase cough and congestion currently on amoxicillin for sinusitis. Denies having any viral testing completed prior to his antibiotics. Symptoms ongoing for 10 days. Utilizing Flonase. Chest x-ray and exam demonstrates clear lungs with inflamed sinuses. Will add a systole into his amoxicillin prescription. 4 Plex ordered, completed and negative for covert flu and RSV. 1 dose of Solu-Medrol given to help with nasal edema however no indication for outpatient steroid therapy. Encouraged completion of an amoxicillin prescription and continued use of daily antihistamine along with Flonase in addition to a systole nasal spray. Return parameters to the emergency room reviewed. Will discharge home in stable condition. Undiagnosed new problem with uncertain prognosis? @ -No Drug Therapy requiring intensive monitoring for toxicity (Heparin, Nitro, Insulin, Cardizem)? @ -None Were any procedures done? @ -No Diagnosis/symptom? @ -Acute on chronic sinusitis Acute, or Chronic, or Acute on Chronic? @ -Acute on chronic Uncomplicated (without systemic symptoms) or Complicated (systemic symptoms)? @ -Uncomplicated Side effects of treatment? @ -None Exacerbation, Progression, or Severe Exacerbation] @ -Exacerbation Poses a threat to life or bodily function? @ -No Case discussed with Dr. Anderson - Lab Data Lab Results 11/13/22 Range/Units 06:16 Influenza Type A (PCR) Not Detected (Not Detectd) Influenza Type B (PCR) Not Detected (Not Detectd) RSV (PCR) Not Detected (Not Detectd) SARS-CoV-2 (PCR) Not Detected (Not Detectd) - Radiology Data Radiology results: report reviewed, image reviewed Disposition Clinical Impression: Sinusitis Disposition: HOME SELF-CARE Condition: Stable Instructions (If sedation given, give patient instructions): Upper Respiratory Infection (ED), Sinusitis (ED) Additional Instructions: Please complete course of antibiotics as prescribed by your provider yesterday. Please continue your daily antihistamine and Flonase use in addition to astelin spray and prescription provided. Please follow-up with your primary care provider and if established ENT. Please return to the Emergency Department if symptoms worsen or any other concerns. Is patient prescribed a controlled substance at d/c from ED?: No Referrals: None,Stated [Primary Care Provider] - 1-2 days Time of Disposition: 07:46
[2022-11-13 07:58] VITALS: BP 149/97; PULSE 73; RESP 18
== END 2022-11-13 07:53 | disposition home or self-care (01) ==
LOC: EC 04:53
DX: J32.9 Chronic sinusitis, unspecified (principal); F12.90 Cannabis use, unspecified, uncomplicated; Z88.1 Allergy status to other antibiotic agents; Z20.822 Contact with and (suspected) exposure to COVID-19
CPT/HCPCS: 87636; 71046; 99285; 96372; J2930

== ENCOUNTER 2023-12-23 16:47 | Inpatient (IN) | payer BC ==
--- NOTE | 2023-12-23 17:12 | ED ---
General Adult HPI - General Source: patient, RN notes reviewed Mode of arrival: ambulatory Limitations: no limitations <Nicolasa Del Valle - Last Filed: 12/23/23 17:08> <Iam Sawant - Last Filed: 12/23/23 19:37> - General Stated complaint: Abd pain,Nausea Time Seen by Provider: 12/23/23 17:09 - History of Present Illness Initial comments: 43 year old male presents to the emergency department for evaluation of chest/epigastric pain x1 week. Reports that the pain is constant achy pain. He reports that he was seen at the clinic today and his blood glucose was 500. No known history of DM. (Nicolasa Del Valle) This is a 43-year-old male who presents to the emergency department stating that for the last 2 weeks he has not been feeling well. Patient states he had some achiness throughout his chest and abdomen. Patient states he just feels a little achy all over. Patient states that he has been drinking a lot and urinating quite a bit as well. Patient states he went to an urgent care today and they took his sugar it was over 500 so he came to the emergency department. Patient has no history of diabetes. Patient states his father became a diabetic at 42. Patient denies any recent fever chills or cough patient Nuys any sore throat. Patient Nuys any abdominal pain he states he has not vomited but he has had some dry heaves. Patient Nuys any diarrhea. Patient denies headache denies numbness or weakness (Iam Sawant) - Related Data Home Medications Medication Instructions Recorded Confirmed ALPRAZolam [Xanax] 1 mg PO DAILY PRN 08/25/18 12/23/23 Cetirizine HCl/Pseudoephedrine 1 tab PO DAILY 12/02/18 12/23/23 [Zyrtec-D Tablet] Albuterol Inhaler [Ventolin Hfa 1 - 2 puff INHALATION RT-Q6H PRN 12/23/23 12/23/23 Inhaler] Apremilast [Otezla] 30 mg PO BID 12/23/23 12/23/23 Betamethasone Dipropionate 1 applic TOPICAL BID PRN 12/23/23 12/23/23 [Betamethasone Dipropionate 0.05%] Nystatin 100,000 Unit/gm Powd 1 applic TOPICAL BID PRN 12/23/23 12/23/23 [Mycostatin Powder] Pantoprazole Sodium 20 mg PO BID PRN 12/23/23 12/23/23 Ruxolitinib Phosphate [Opzelura] 1 applic TOPICAL BID PRN 12/23/23 12/23/23 lisinopriL [Zestril] 20 mg PO HS 12/23/23 12/23/23 rOPINIRole HCL [Requip] See Taper PO DIRECTED 12/23/23 12/23/23 Allergies Allergy/AdvReac Type Severity Reaction Status Date / Time cephalexin [From Keflex] Allergy Unknown Verified 12/23/23 17:44 latex Allergy Rash/Hives Verified 12/23/23 17:44 Review of Systems ROS Other: All systems not noted in ROS Statement are negative. <Nicolasa Del Valle - Last Filed: 12/23/23 17:08> ROS Other: All systems not noted in ROS Statement are negative. <Iam Sawant - Last Filed: 12/23/23 19:37> ROS Statement: Those systems with pertinent positive or pertinent negative responses have been documented in the HPI. Past Medical History Past Medical History: Musculoskeletal Disorder Additional Past Medical History / Comment(s): back pain History of Any Multi-Drug Resistant Organisms: None Reported Past Surgical History: Back Surgery Additional Past Surgical History / Comment(s): pain procedure Past Anesthesia/Blood Transfusion Reactions: No Reported Reaction Past Psychological History: No Psychological Hx Reported Smoking Status: Never smoker Past Alcohol Use History: Occasional Past Drug Use History: Marijuana - Past Family History Mother Family Medical History: No Reported History <Nicolasa Del Valle - Last Filed: 12/23/23 17:08> General Exam <Nicolasa Del Valle - Last Filed: 12/23/23 17:08> <Iam Sawant - Last Filed: 12/23/23 19:37> - General Exam Comments Initial Comments: Visual Physical Exam Vital signs reviewed General: Well-appearing, nontoxic, no acute distress. Head: Normocephalic, atraumatic Eyes: PERRLA, EOMI ENT: Airway patent Chest: Nonlabored breathing Skin: No visual rash, normal skin tone Neuro: Alert and oriented 3 Musculoskeletal: No gross abnormalities (Nicolasa Del Valle) GENERAL: Patient is well-developed and well-nourished. Patient is nontoxic and well- hydrated and is in mild distress. ENT: Neck is soft and supple. No significant lymphadenopathy is noted. Oropharynx is clear. Moist mucous membranes. EYES: The sclera were anicteric and conjunctiva were pink and moist. Extraocular movements were intact and pupils were equal round and reactive to light. Eyelids were unremarkable. PULMONARY: Unlabored respirations. Good breath sounds bilaterally. No audible rales rhonchi or wheezing was noted. CARDIOVASCULAR: Patient is tachycardic at 120 bpm. ABDOMEN: Soft and nontender with normal bowel sounds. SKIN: Skin is clear with no lesions or rashes and otherwise unremarkable. NEUROLOGIC: Patient is alert and oriented x3. Cranial nerves II through XII are grossly intact. Motor and sensory are also intact. Normal speech, volume and content. Symmetrical smile. MUSCULOSKELETAL: Normal extremities with adequate strength and full range of motion. LYMPHATICS: No significant lymphadenopathy is noted PSYCHIATRIC: Normal psychiatric evaluation. (Iam Sawant) Course Vital Signs 12/23/23 12/23/23 12/23/23 17:07 17:53 19:03 Temperature 97.5 F L Pulse Rate 116 H 102 H 104 H Respiratory 20 18 18 Rate Blood Pressure 172/123 159/105 140/89 O2 Sat by Pulse 98 98 98 Oximetry Medical Decision Making <Nicolasa Del Valle - Last Filed: 12/23/23 17:08> - Lab Data Result diagrams: 12/23/23 17:37 12/23/23 17:37 <Iam Sawant - Last Filed: 12/23/23 19:37> - Medical Decision Making Quick note preformed by Nicolasa Del Valle PA-C (Nicolasa Del Valle) EKG is interpreted by myself. EKG shows sinus tachycardia 114 bpm [place] of 136 QRS is 90 QT interval 320 QTc is 388. Patient's EKG shows no ST segment ovation or depression Was pt. sent in by a medical professional or institution (SANGEETHA Gottlieb, DIRECTOR [employer], urgent care, hospital, or intermediate...) When possible be specific @ -Patient was sent in by an urgent care. Did you speak to anyone other than the patient for history (EMS, parent, family, police, friend...)? What history was obtained from this source @ -No Did you review nursing and triage notes (agree or disagree)? Why? @ -I reviewed and agree with nursing and triage notes Were old charts reviewed (outside hosp., previous admission, EMS record, old EKG, old radiological studies, urgent care reports/EKG's, intermediate records)? Report findings @ -I reviewed prior charts and prior lab work on this patient Differential Diagnosis (chest pain, altered mental status, abdominal pain women, abdominal pain men, vaginal bleeding, weakness, fever, dyspnea, syncope, headache, dizziness, GI bleed, back pain, seizure, CVA, palpatations, mental health, musculoskeletal)? @ -Differential Weakness: Hypoglycemia, shock, sepsis, hyponatremia, anemia, infection, CT, ETOH, adverse medicine reaction, overdose, stroke, this is not meant to be an all-inclusive list. EKG interpreted by me (3pts min.). @ -As above X-rays interpreted by me (1pt min.). @ -Chest x-ray shows no acute abnormality CT interpreted by me (1pt min.). @ -None done U/S interpreted by me (1pt. min.). @ -None done What testing was considered but not performed or refused? (CT, X-rays, U/S, labs)? Why? @ -None What meds were considered but not given or refused? Why? @ -None Did you discuss the management of the patient with other professionals (professionals i.e. , PA, DIRECTOR [employer], lab, RT, psych nurse, social services specialist, pharmacy operations specialist, teacher, booking police officer, casework manager)? Give summary @ -I spoke with [facility] hospitalist and they agreed admit the patient admitted the patient Was smoking cessation discussed for >3mins.? @ -No Was critical care preformed (if so, how long)? @ -35 minutes Were there social determinants of health that impacted care today? How? (Homelessness, low income, unemployed, alcoholism, drug addiction, transportation, low edu. Level, literacy, decrease access to med. care, retirement, rehab)? @ -No Was there de-escalation of care discussed even if they declined (Discuss DNR or withdrawal of care, Hospice)? DNR status @ -No What co-morbidities impacted this encounter? (DM, HTN, Smoking, COPD, CAD, Cancer, CVA, ARF, Chemo, Hep., AIDS, mental health diagnosis, sleep apnea, morbid obesity)? @ -None Was patient admitted / discharged? Hospital course, mention meds given and route, prescriptions, significant lab abnormalities, going to OR and other pertinent info. @ -Patient's lab work indicated the patient was in DKA and he is a first-time diabetic. Patient was given a liter and half of fluid initially and 10 units of regular insulin patient was put on a drip [facility] Undiagnosed new problem with uncertain prognosis? @ -No Drug Therapy requiring intensive monitoring for toxicity (Heparin, Nitro, Insulin, Cardizem)? @ -No Were any procedures done? @ -No Diagnosis/symptom? @ -DKA, new onset diabetes Acute, or Chronic, or Acute on Chronic? @ -Acute Uncomplicated (without systemic symptoms) or Complicated (systemic symptoms)? @ -Complicated Side effects of treatment? @ -No Exacerbation, Progression, or Severe Exacerbation? @ -No Poses a threat to life or bodily function? How? (Chest pain, USA, CT, pneumonia, PE, COPD, DKA, ARF, appy, cholecystitis, CVA, Diverticulitis, Homicidal, Suicidal, threat to staff... and all critical care pts) @ -Yes this could lead to severe dehydration and (Iam Sawant) - Lab Data Lab Results 12/23/23 12/23/23 12/23/23 Range/Units 17:24 17:37 17:37 WBC 14.6 H (3.8-10.6) k/uL RBC 6.11 H (4.30-5.90) m/uL Hgb 18.4 H (13.0-17.5) gm/dL Hct 53.3 H (39.0-53.0) % MCV 87.4 (80.0-100.0) fL MCH 30.1 (25.0-35.0) pg MCHC 34.5 (31.0-37.0) g/dL RDW 12.8 (11.5-15.5) % Plt Count 358 (150-450) k/uL MPV 8.1 Neutrophils % 87 % Lymphocytes % 8 % Monocytes % 4 % Eosinophils % 0 % Basophils % 0 % Neutrophils # 12.6 H (1.3-7.7) k/uL Lymphocytes # 1.1 (1.0-4.8) k/uL Monocytes # 0.6 (0-1.0) k/uL Eosinophils # 0.0 (0-0.7) k/uL Basophils # 0.1 (0-0.2) k/uL PT 11.0 (10.0-12.5) sec INR 1.0 (<1.2) APTT 25.1 (22.0-30.0) sec Sodium (137-145) mmol/L Potassium (3.5-5.1) mmol/L Chloride (98-107) mmol/L Carbon Dioxide (22-30) mmol/L Anion Gap mmol/L BUN (9-20) mg/dL Creatinine (0.66-1.25) mg/dL Est GFR (CKD-EPI)AfAm (>60 ml/min/1.73 sqM) Est GFR (CKD-EPI)NonAf (>60 ml/min/1.73 sqM) Glucose (74-99) mg/dL POC Glucose (mg/dL) 454 H (70-110) mg/dL POC Glu Cutter Machine ID Carol Agustin Calcium (8.4-10.2) mg/dL Magnesium (1.6-2.3) mg/dL Total Bilirubin (0.2-1.3) mg/dL AST (17-59) U/L ALT (4-49) U/L Alkaline Phosphatase (38-126) U/L Troponin I (0.000-0.034) ng/mL Total Protein (6.3-8.2) g/dL Albumin (3.5-5.0) g/dL Lipase (23-300) U/L Acetone, Qual (Negative) 12/23/23 12/23/23 12/23/23 Range/Units 17:37 17:37 19:07 WBC (3.8-10.6) k/uL RBC (4.30-5.90) m/uL Hgb (13.0-17.5) gm/dL Hct (39.0-53.0) % MCV (80.0-100.0) fL MCH (25.0-35.0) pg MCHC (31.0-37.0) g/dL RDW (11.5-15.5) % Plt Count (150-450) k/uL MPV Neutrophils % % Lymphocytes % % Monocytes % % Eosinophils % % Basophils % % Neutrophils # (1.3-7.7) k/uL Lymphocytes # (1.0-4.8) k/uL Monocytes # (0-1.0) k/uL Eosinophils # (0-0.7) k/uL Basophils # (0-0.2) k/uL PT (10.0-12.5) sec INR (<1.2) APTT (22.0-30.0) sec Sodium 133 L (137-145) mmol/L Potassium 5.2 H (3.5-5.1) mmol/L Chloride 99 (98-107) mmol/L Carbon Dioxide 12 L (22-30) mmol/L Anion Gap 22 mmol/L BUN 19 (9-20) mg/dL Creatinine 0.98 (0.66-1.25) mg/dL Est GFR (CKD-EPI)AfAm >90 (>60 ml/min/1.73 sqM) Est GFR (CKD-EPI)NonAf >90 (>60 ml/min/1.73 sqM) Glucose 468 H (74-99) mg/dL POC Glucose (mg/dL) 308 H (70-110) mg/dL POC Glu Cutter Machine ID Louisa Bal Calcium 10.9 H (8.4-10.2) mg/dL Magnesium 1.9 (1.6-2.3) mg/dL Total Bilirubin 1.3 (0.2-1.3) mg/dL AST 42 (17-59) U/L ALT 53 H (4-49) U/L Alkaline Phosphatase 147 H (38-126) U/L Troponin I <0.012 (0.000-0.034) ng/mL Total Protein 9.2 H (6.3-8.2) g/dL Albumin 5.6 H (3.5-5.0) g/dL Lipase 409 H (23-300) U/L Acetone, Qual Positive (Negative) Critical Care Time Critical Care Time: Yes Total Critical Care Time: 35 <Iam Sawant - Last Filed: 12/23/23 19:37> Disposition <Nicolasa Del Valle - Last Filed: 12/23/23 17:08> Time of Disposition: 19:36 <Iam Sawant - Last Filed: 12/23/23 19:37> Clinical Impression: Diabetic ketoacidosis, Hypertensive urgency Disposition: ADMITTED IP TO THIS HOSP Referrals: Nonstaff,Physician [Primary Care Provider] - 1-2 days
[2023-12-23 17:27] LABS: Glucose,Whole Blood 454 mg/dL (70-110)
[2023-12-23] MEDS: SODIUM CHLORIDE 0.9% 2,000 ML IV ONE (17:45)
[2023-12-23] MEDS: INSULIN REGULAR 100 UNIT/ML VIAL (IV) IV ONE (17:45)
[2023-12-23 18:02] LABS: Basophils # (A) 0.1 k/uL (0-0.2); Basophils % (A) 0 %; Eosinophils % (A) 0 %; HCT 53.3 % (39.0-53.0); HGB 18.4 gm/dL (13.0-17.5); Lymphocytes # (A) 1.1 k/uL (1.0-4.8); Lymphocytes % (A) 8 %; MCH 30.1 pg (25.0-35.0); MCHC 34.5 g/dL (31.0-37.0); MCV 87.4 fL (80.0-100.0); Mean Platelet Volume 8.1; Monocytes # (A) 0.6 k/uL (0-1.0); Monocytes % (A) 4 %; Neutrophils # (A) 12.6 k/uL (1.3-7.7); Neutrophils % (A) 87 %; Platelet Count 358 k/uL (150-450); RBC 6.11 m/uL (4.30-5.90); RDW 12.8 % (11.5-15.5); WBC 14.6 k/uL (3.8-10.6)
[2023-12-23 18:11] LABS: ALT 53 U/L (4-49); AST 42 U/L (17-59); African American GFR (CKD) >90 (>60 ml/min/1.73 sqM); Albumin 5.6 g/dL (3.5-5.0); Alkaline Phosphatase 147 U/L (38-126); Anion Gap 22 mmol/L; Blood Urea Nitrogen 19 mg/dL (9-20); Calcium 10.9 mg/dL (8.4-10.2); Carbon Dioxide 12 mmol/L (22-30); Chloride 99 mmol/L (98-107); Glucose 468 mg/dL (74-99); Lipase 409 U/L (23-300); Magnesium 1.9 mg/dL (1.6-2.3); Non-African American GFR(CKD) >90 (>60 ml/min/1.73 sqM); Potassium 5.2 mmol/L (3.5-5.1); Sodium 133 mmol/L (137-145); Total Bilirubin 1.3 mg/dL (0.2-1.3); Total Protein 9.2 g/dL (6.3-8.2)
--- NOTE | 2023-12-23 18:26 | XR ---
EXAMINATION TYPE: XR chest 2V DATE OF EXAM: 12/23/2023 COMPARISON: 11/13/2022 HISTORY: 43-year-old male with chest pain TECHNIQUE: PA and lateral views FINDINGS: The cardiomediastinal silhouette, aorta, and pulmonary vasculature are within normal limits. Lungs an d pleural spaces are clear. Spinal stimulator array centered along the mid thoracic spinal canal. IMPRESSION: No acute cardiopulmonary process.
[2023-12-23 18:29] LABS: Partial Thromboplastin Time 25.1 sec (22.0-30.0)
[2023-12-23] MEDS: ACETAMINOPHEN TAB 500 MG TAB PO STA (19:00)
[2023-12-23 19:10] LABS: Glucose,Whole Blood 308 mg/dL (70-110)
[2023-12-23] MEDS: SODIUM CHLORIDE 0.9% 1,000 ML IV SCH (19:42)
[2023-12-23 20:16] LABS: Glucose,Whole Blood 318 mg/dL (70-110)
[2023-12-23] MEDS: INSULIN REGULAR 100 UNIT in SODIUM CHLORIDE 0.9% 100 ML IV SCH (20:37)
[2023-12-23 20:50] LABS: African American GFR (CKD) >90 (>60 ml/min/1.73 sqM); Anion Gap 14 mmol/L; Blood Urea Nitrogen 16 mg/dL (9-20); Carbon Dioxide 17 mmol/L (22-30); Chloride 103 mmol/L (98-107); Glucose 314 mg/dL (74-99); Non-African American GFR(CKD) >90 (>60 ml/min/1.73 sqM); Potassium 5.1 mmol/L (3.5-5.1); Sodium 134 mmol/L (137-145)
[2023-12-23 21:36] LABS: Glucose,Whole Blood 254 mg/dL (70-110)
[2023-12-23] MEDS ORDERED: ONDANSETRON 4 MG/2 ML VIAL IVP PRN (21:58)
[2023-12-23 22:09] LABS: Appearance,Urine Clear (Clear); Bilirubin,Urine Negative (Negative); Blood,Urine Negative (Negative); Color,Urine Colorless; Glucose,Urine (UA) 4+ (Negative); Leukocyte Esterase,Urine Negative (Negative); Nitrite,Urine Negative (Negative); PH, Urine 5.5 (5.0-8.0); Protein,Urine Trace (Negative); Urobilinogen,Urine <2.0 mg/dL (<2.0)
[2023-12-23 22:21] LABS: Ketones,Urine 4+ (Negative)
[2023-12-23] MEDS: DEXTROSE 5%-0.45% NACL 1,000 ML IV SCH (22:35)
[2023-12-23 22:39] LABS: Glucose,Whole Blood 170 mg/dL (70-110)
[2023-12-23] MEDS: HYDROcodone/APAP 5-325MG 1 EACH TAB PO PRN (22:45)
[2023-12-23 23:29] LABS: Glucose,Whole Blood 132 mg/dL (70-110)
[2023-12-24 00:28] LABS: Glucose,Whole Blood 111 mg/dL (70-110)
[2023-12-24 01:10] LABS: African American GFR (CKD) >90 (>60 ml/min/1.73 sqM); Anion Gap 10 mmol/L; Blood Urea Nitrogen 15 mg/dL (9-20); Carbon Dioxide 17 mmol/L (22-30); Chloride 109 mmol/L (98-107); Glucose 104 mg/dL (74-99); Non-African American GFR(CKD) >90 (>60 ml/min/1.73 sqM); Sodium 136 mmol/L (137-145)
[2023-12-24 01:32] LABS: Glucose,Whole Blood 126 mg/dL (70-110)
[2023-12-24 02:35] LABS: Glucose,Whole Blood 150 mg/dL (70-110)
[2023-12-24 03:42] LABS: Glucose,Whole Blood 158 mg/dL (70-110)
[2023-12-24 04:35] LABS: Glucose,Whole Blood 190 mg/dL (70-110)
[2023-12-24] MEDS: HYDROmorphone 0.5 MG/0.5 ML SYRINGE IVP PRN (04:47)
[2023-12-24 05:36] LABS: Glucose,Whole Blood 262 mg/dL (70-110)
[2023-12-24 06:35] LABS: Glucose,Whole Blood 223 mg/dL (70-110)
[2023-12-24 07:34] LABS: Glucose,Whole Blood 248 mg/dL (70-110)
[2023-12-24 08:41] LABS: Glucose,Whole Blood 292 mg/dL (70-110)
[2023-12-24] MEDS ORDERED: DEXTROSE 50% SYRINGE 50 ML IVP PRN ×2 (09:24)
[2023-12-24 09:30] LABS: African American GFR (CKD) >90 (>60 ml/min/1.73 sqM); Anion Gap 12 mmol/L; Blood Urea Nitrogen 13 mg/dL (9-20); Carbon Dioxide 18 mmol/L (22-30); Chloride 104 mmol/L (98-107); Non-African American GFR(CKD) >90 (>60 ml/min/1.73 sqM); Phosphorus 2.8 mg/dL (2.5-4.5); Potassium 4.6 mmol/L (3.5-5.1); Sodium 134 mmol/L (137-145)
[2023-12-24] MEDS ORDERED: ALBUTEROL NEBULIZED 2.5 MG/3 ML INHALATION PRN (09:30)
[2023-12-24 09:33] LABS: Glucose,Whole Blood 286 mg/dL (70-110)
[2023-12-24] MEDS: INSULIN DETEMIR (LEVEMIR) 100 UNIT/ML SYR SQ SCH (10:33)
[2023-12-24 11:23] LABS: African American GFR (CKD) >90 (>60 ml/min/1.73 sqM); Anion Gap 15 mmol/L; Blood Urea Nitrogen 13 mg/dL (9-20); Calcium 9.7 mg/dL (8.4-10.2); Carbon Dioxide 16 mmol/L (22-30); Chloride 102 mmol/L (98-107); Glucose 400 mg/dL (74-99); Non-African American GFR(CKD) >90 (>60 ml/min/1.73 sqM); Potassium 4.2 mmol/L (3.5-5.1); Sodium 133 mmol/L (137-145)
[2023-12-24 11:33] LABS: Glucose,Whole Blood 404 mg/dL (70-110)
[2023-12-24] MEDS: INSULIN ASPART (NovoLOG) 100 UNIT/ML VIAL SQ SCH (12:18)
--- NOTE | 2023-12-24 12:21 | P.HPIM ---
History of Present Illness H&P Date: 12/24/23 History of present illness; patient is a 43-year-old gentleman no significant past medical history presents the ER for epigastric pain for the last 1 week. Patient stated that he has been having intermittent epigastric pain for the last week. Patient also endorsing that he has been thirsty and drinking a lot of water and having increased frequency of urination. There was no complaint of fever or chills. There was no complaint nausea or vomiting. Patient states he feels generalized weakness and does not feel his usual self. Patient went to an urgent care where he was found to have elevated blood sugar of more than 500. Patient no prior history of diabetes. Because of hyperglycemia, patient was sent to the ER Initial lab work done in the ER showed WBC 14.6, hemoglobin 18.4, platelet count 358, sodium 132, potassium 5.2, BUN 19, creatinine 0.98, anion gap 22, carbon oxide 12, magnesium 1.9, bilirubin 1.3, AST 42, ALT 53, lipase 409 EKG done in the ER showed heart rate of 114, no ST segment elevation or depression seen, no T-wave inversions seen. Chest x-ray done in the ER showed no acute cardiopulmonary process Patient admitted to internal medicine service REVIEW OF SYSTEMS: CONSTITUTIONAL: As mentioned above HEENT: No recent visual problems or hearing problems. Denied any sore throat. CARDIOVASCULAR: No chest pain, orthopnea, PND, no palpitations, no syncope. PULMONARY: No shortness of breath, no cough, no hemoptysis. GASTROINTESTINAL: As mentioned above NEUROLOGICAL: No headaches, no weakness, no numbness. HEMATOLOGICAL: Denies any bleeding or petechiae. GENITOURINARY: Denies any burning micturition, frequency, or urgency. MUSCULOSKELETAL/RHEUMATOLOGICAL: Denies any joint pain, swelling, or any muscle pain. ENDOCRINE: Denies any polyuria or polydipsia. The rest of the 14-point review of systems is negative. PHYSICAL EXAMINATION: GENERAL: The patient is alert and oriented x3, not in any acute distress. Well developed, well nourished. HEENT: Pupils are round and equally reacting to light. EOMI. No scleral icterus. No conjunctival pallor. Normocephalic, atraumatic. No pharyngeal erythema. No thyromegaly. CARDIOVASCULAR: S1 and S2 present. No murmurs, rubs, or gallops. PULMONARY: Chest is clear to auscultation, no wheezing or crackles. ABDOMEN: Soft, nontender, nondistended, normoactive bowel sounds. No palpable organomegaly. MUSCULOSKELETAL: No joint swelling or deformity. EXTREMITIES: No cyanosis, clubbing, or pedal edema. NEUROLOGICAL: Gross neurological examination did not reveal any focal deficits. SKIN: No rashes. Assessment and plan Hyperglycemia New onset diabetes mellitus Acute pancreatitis Diabetic ketoacidosis Hyponatremia Hyperkalemia Hypertension Psoriasis Monitor vital signs Monitor CBC Monitor CMP Continue telemetry monitoring Serial electrolytes every 4 hourly Continue IV fluids continue antiemetics Continue insulin drip Once blood sugars are less than 250, switch fluids to D5 5 half-normal saline Once anion gap closes, will start patient on Levemir 8 units twice a day and sliding scale insulin Ordered ultrasound abdominal Social work consulted for diabetic supplies Labs and medication were reviewed.. Continue same treatment. Continue with symptomatic treatment. Resume home medication. Monitor labs and vitals. DVT and GI prophylaxis. Further recommendations as per clinical course of the patient Dictation was produced using [employer] dictation software. please excuse any grammatical, word or spelling errors. Past Medical History Past Medical History: Hypertension, Musculoskeletal Disorder Additional Past Medical History / Comment(s): back pain, restless leg syndrome. History of Any Multi-Drug Resistant Organisms: None Reported Past Surgical History: Back Surgery Additional Past Surgical History / Comment(s): pain procedure, spinal cord stim ulator Past Anesthesia/Blood Transfusion Reactions: No Reported Reaction Past Psychological History: No Psychological Hx Reported Smoking Status: Never smoker Past Alcohol Use History: Occasional Past Drug Use History: Marijuana - Past Family History Mother Family Medical History: No Reported History Father Family Medical History: Coronary Artery Disease (CAD), Diabetes Mellitus Additional Family Medical History / Comment(s): CABG Medications and Allergies Home Medications Medication Instructions Recorded Confirmed Type ALPRAZolam [Xanax] 1 mg PO DAILY PRN 08/25/18 12/23/23 History Cetirizine HCl/Pseudoephedrine 1 tab PO DAILY 12/02/18 12/23/23 History [Zyrtec-D Tablet] Albuterol Inhaler [Ventolin Hfa 1 - 2 puff INHALATION RT-Q6H PRN 12/23/23 12/23/23 History Inhaler] Apremilast [Otezla] 30 mg PO BID 12/23/23 12/23/23 History Betamethasone Dipropionate 1 applic TOPICAL BID PRN 12/23/23 12/23/23 History [Betamethasone Dipropionate 0.05%] Nystatin 100,000 Unit/gm Powd 1 applic TOPICAL BID PRN 12/23/23 12/23/23 History [Mycostatin Powder] Pantoprazole Sodium 20 mg PO BID PRN 12/23/23 12/23/23 History Ruxolitinib Phosphate [Opzelura] 1 applic TOPICAL BID PRN 12/23/23 12/23/23 History lisinopriL [Zestril] 20 mg PO HS 12/23/23 12/23/23 History rOPINIRole HCL [Requip] See Taper PO DIRECTED 12/23/23 12/23/23 History Allergies Allergy/AdvReac Type Severity Reaction Status Date / Time cephalexin [From Keflex] Allergy Unknown Verified 12/23/23 17:44 latex Allergy Rash/Hives Verified 12/23/23 17:44 Physical Exam Vitals: Vital Signs Temp Pulse Pulse Resp BP BP Pulse Ox 12/24/23 07:36 97.6 F 69 18 135/82 98 12/24/23 04:00 98.0 F 78 18 146/77 99 12/24/23 00:00 97.6 F 95 18 158/81 97 12/23/23 20:15 97.7 F 97 18 157/90 97 12/23/23 19:37 93 19 146/85 96 12/23/23 19:03 104 H 18 140/89 98 12/23/23 17:53 102 H 18 159/105 98 12/23/23 17:07 97.5 F L 116 H 20 172/123 98 Intake and Output 12/23/23 12/24/23 12/24/23 22:59 06:59 14:59 Intake Total 13.517 40.571 6.154 Balance 13.517 40.571 6.154 Intake: Intake, IV Titration 13.517 40.571 6.154 Amount Insulin Regular 100 unit 13.517 40.571 6.154 In Sodium Chloride 0.9% 100 ml @ 0.1 UNITS/KG/HR 12.873 mls/hr IV .Q7H51M [facility] Rx#:[id number] Other: Voiding Method Toilet Toilet # Voids 1 Weight 127.459 kg Results CBC & Chem 7: 12/23/23 17:37 12/24/23 10:33 Labs: Abnormal Lab Results - Last 24 Hours (Table) 12/23/23 12/23/23 12/23/23 Range/Units 17:24 17:37 17:37 WBC 14.6 H (3.8-10.6) k/uL RBC 6.11 H (4.30-5.90) m/uL Hgb 18.4 H (13.0-17.5) gm/dL Hct 53.3 H (39.0-53.0) % Neutrophils # 12.6 H (1.3-7.7) k/uL Sodium 133 L (137-145) mmol/L Potassium 5.2 H (3.5-5.1) mmol/L Chloride (98-107) mmol/L Carbon Dioxide 12 L (22-30) mmol/L Creatinine (0.66-1.25) mg/dL Glucose 468 H (74-99) mg/dL POC Glucose (mg/dL) 454 H (70-110) mg/dL Calcium 10.9 H (8.4-10.2) mg/dL ALT 53 H (4-49) U/L Alkaline Phosphatase 147 H (38-126) U/L Total Protein 9.2 H (6.3-8.2) g/dL Albumin 5.6 H (3.5-5.0) g/dL Lipase 409 H (23-300) U/L Urine Protein (Negative) Urine Glucose (UA) (Negative) Urine Ketones (Negative) 12/23/23 12/23/23 12/23/23 Range/Units 19:07 20:14 20:15 WBC (3.8-10.6) k/uL RBC (4.30-5.90) m/uL Hgb (13.0-17.5) gm/dL Hct (39.0-53.0) % Neutrophils # (1.3-7.7) k/uL Sodium 134 L (137-145) mmol/L Potassium (3.5-5.1) mmol/L Chloride (98-107) mmol/L Carbon Dioxide 17 L (22-30) mmol/L Creatinine (0.66-1.25) mg/dL Glucose 314 H (74-99) mg/dL POC Glucose (mg/dL) 308 H 318 H (70-110) mg/dL Calcium (8.4-10.2) mg/dL ALT (4-49) U/L Alkaline Phosphatase (38-126) U/L Total Protein (6.3-8.2) g/dL Albumin (3.5-5.0) g/dL Lipase (23-300) U/L Urine Protein (Negative) Urine Glucose (UA) (Negative) Urine Ketones (Negative) 12/23/23 12/23/23 12/23/23 Range/Units 21:34 21:37 22:37 WBC (3.8-10.6) k/uL RBC (4.30-5.90) m/uL Hgb (13.0-17.5) gm/dL Hct (39.0-53.0) % Neutrophils # (1.3-7.7) k/uL Sodium (137-145) mmol/L Potassium (3.5-5.1) mmol/L Chloride (98-107) mmol/L Carbon Dioxide (22-30) mmol/L Creatinine (0.66-1.25) mg/dL Glucose (74-99) mg/dL POC Glucose (mg/dL) 254 H 170 H (70-110) mg/dL Calcium (8.4-10.2) mg/dL ALT (4-49) U/L Alkaline Phosphatase (38-126) U/L Total Protein (6.3-8.2) g/dL Albumin (3.5-5.0) g/dL Lipase (23-300) U/L Urine Protein Trace H (Negative) Urine Glucose (UA) 4+ H (Negative) Urine Ketones 4+ H (Negative) 12/23/23 12/24/23 12/24/23 Range/Units 23:28 00:26 00:26 WBC (3.8-10.6) k/uL RBC (4.30-5.90) m/uL Hgb (13.0-17.5) gm/dL Hct (39.0-53.0) % Neutrophils # (1.3-7.7) k/uL Sodium 136 L (137-145) mmol/L Potassium (3.5-5.1) mmol/L Chloride 109 H (98-107) mmol/L Carbon Dioxide 17 L (22-30) mmol/L Creatinine 0.64 L (0.66-1.25) mg/dL Glucose 104 H (74-99) mg/dL POC Glucose (mg/dL) 132 H 111 H (70-110) mg/dL Calcium (8.4-10.2) mg/dL ALT (4-49) U/L Alkaline Phosphatase (38-126) U/L Total Protein (6.3-8.2) g/dL Albumin (3.5-5.0) g/dL Lipase (23-300) U/L Urine Protein (Negative) Urine Glucose (UA) (Negative) Urine Ketones (Negative) 12/24/23 12/24/23 12/24/23 Range/Units 01:30 02:34 03:37 WBC (3.8-10.6) k/uL RBC (4.30-5.90) m/uL Hgb (13.0-17.5) gm/dL Hct (39.0-53.0) % Neutrophils # (1.3-7.7) k/uL Sodium (137-145) mmol/L Potassium (3.5-5.1) mmol/L Chloride (98-107) mmol/L Carbon Dioxide (22-30) mmol/L Creatinine (0.66-1.25) mg/dL Glucose (74-99) mg/dL POC Glucose (mg/dL) 126 H 150 H 158 H (70-110) mg/dL Calcium (8.4-10.2) mg/dL ALT (4-49) U/L Alkaline Phosphatase (38-126) U/L Total Protein (6.3-8.2) g/dL Albumin (3.5-5.0) g/dL Lipase (23-300) U/L Urine Protein (Negative) Urine Glucose (UA) (Negative) Urine Ketones (Negative) 12/24/23 12/24/23 12/24/23 Range/Units 04:32 05:33 06:34 WBC (3.8-10.6) k/uL RBC (4.30-5.90) m/uL Hgb (13.0-17.5) gm/dL Hct (39.0-53.0) % Neutrophils # (1.3-7.7) k/uL Sodium (137-145) mmol/L Potassium (3.5-5.1) mmol/L Chloride (98-107) mmol/L Carbon Dioxide (22-30) mmol/L Creatinine (0.66-1.25) mg/dL Glucose (74-99) mg/dL POC Glucose (mg/dL) 190 H 262 H 223 H (70-110) mg/dL Calcium (8.4-10.2) mg/dL ALT (4-49) U/L Alkaline Phosphatase (38-126) U/L Total Protein (6.3-8.2) g/dL Albumin (3.5-5.0) g/dL Lipase (23-300) U/L Urine Protein (Negative) Urine Glucose (UA) (Negative) Urine Ketones (Negative) 12/24/23 12/24/23 Range/Units 07:32 08:39 WBC (3.8-10.6) k/uL RBC (4.30-5.90) m/uL Hgb (13.0-17.5) gm/dL Hct (39.0-53.0) % Neutrophils # (1.3-7.7) k/uL Sodium (137-145) mmol/L Potassium (3.5-5.1) mmol/L Chloride (98-107) mmol/L Carbon Dioxide (22-30) mmol/L Creatinine (0.66-1.25) mg/dL Glucose (74-99) mg/dL POC Glucose (mg/dL) 248 H 292 H (70-110) mg/dL Calcium (8.4-10.2) mg/dL ALT (4-49) U/L Alkaline Phosphatase (38-126) U/L Total Protein (6.3-8.2) g/dL Albumin (3.5-5.0) g/dL Lipase (23-300) U/L Urine Protein (Negative) Urine Glucose (UA) (Negative) Urine Ketones (Negative) Thrombosis Risk Factor Assmnt - Choose All That Apply Any of the Below Risk Factors Present?: Yes Each Factor Represents 1 point: Obesity (BMI >25) Thrombosis Risk Factor Assessment Total Risk Factor Score: 1 Thrombosis Risk Factor Assessment Level: Low Risk
[2023-12-24] MEDS: lisinopriL 20 MG TAB PO SCH (13:09)
[2023-12-24] MEDS: HYDROcodone/APAP 5-325MG 1 EACH TAB PO PRN (13:09)
[2023-12-24 14:49] VITALS: BMI 36.1
[2023-12-24 15:41] LABS: Chol/HDL Ratio 6.82 Ratio; LDL Cholesterol,Calculated 123.6 mg/dL (0.0-131.0)
[2023-12-24 16:36] LABS: Glucose,Whole Blood 243 mg/dL (70-110)
--- NOTE | 2023-12-24 18:48 | US ---
EXAMINATION TYPE: US abdomen complete DATE OF EXAM: 12/24/2023 COMPARISON: NONE CLINICAL INDICATION: Male, 43 years old with history of abdominal pain; abdominal pain x 1 week TECHNIQUE: Multiple sonographic images of the abdomen are obtained. FINDINGS: EXAM MEASUREMENTS: Liver Length: 17.5 cm Gallbladder Wall: 0.18 cm CBD: 0.35 cm Spleen: 12.2 cm Right Kidney: 12.5 x 6.6 x 6.6 cm Left Kidney: 12.2 x 5.8 x 6.9 cm Pancreas: Obscured by bowel gas Liver: Heterogeneous. Hypoechoic area seen in left lobe of liver measuring 3.7 x 2.5 x 4.7cm Gallbladder: a singular mobile echogenic focus seen measuring 1.5cm Evidence for sonographic Castillo's sign: No CBD: wnl Spleen: wnl Right Kidney: Column of Rafa mid pole measuring 2.4 x 2.7 x 2.1cm. Left Kidney: wnl Upper IVC: wnl Abd Aorta: wnl Increased echotexture to liver with masslike area in the left hepatic lobe. Additional area adjacent to the gallbladder fossa of lower echogenicity. The intrahepatic portion of the IVC and proximal abd ominal aorta are within normal limits. Common bile duct is unremarkable. The visualized portions of the pancreas are homogenous. The spleen is unremarkable. Kidneys are symmetric and free of hydrone phrosis. No renal lesions are seen. IMPRESSION: 1. Masslike area within the liver left hepatic lobe possibly relating to focal fatty sparing in the geographic morphology. Further evaluation with MRI liver mass protocol is recommended for confirmatio n. 2. Hepatic steatosis with suspected focal fatty sparing adjacent to gallbladder fossa. 3. Cholelithiasis.
[2023-12-24 20:23] LABS: Glucose,Whole Blood 207 mg/dL (70-110)
[2023-12-24] MEDS ORDERED: lisinopriL 20 MG TAB PO SCH (21:00)
[2023-12-25 04:54] VITALS: TEMP 97.5
[2023-12-25 06:28] LABS: Glucose,Whole Blood 253 mg/dL (70-110)
[2023-12-25] MEDS: PANTOPRAZOLE 40 MG TABLET PO PRN (06:58)
[2023-12-25] MEDS: ALPRAZolam 1 MG TAB PO PRN (08:47)
[2023-12-25 08:51] VITALS: BP 140/86; PULSE 100; RESP 18
[2023-12-25 10:30] LABS: Basophils # (A) 0.1 k/uL (0-0.2); Basophils % (A) 1 %; Eosinophils # (A) 0.1 k/uL (0-0.7); Eosinophils % (A) 1 %; HCT 46.4 % (39.0-53.0); HGB 16.3 gm/dL (13.0-17.5); Lymphocytes # (A) 1.4 k/uL (1.0-4.8); Lymphocytes % (A) 20 %; MCH 30.4 pg (25.0-35.0); MCHC 35.2 g/dL (31.0-37.0); MCV 86.3 fL (80.0-100.0); Mean Platelet Volume 8.1; Monocytes # (A) 0.5 k/uL (0-1.0); Monocytes % (A) 7 %; Neutrophils # (A) 4.9 k/uL (1.3-7.7); Neutrophils % (A) 69 %; Platelet Count 266 k/uL (150-450); RBC 5.38 m/uL (4.30-5.90); WBC 7.1 k/uL (3.8-10.6)
[2023-12-25 10:46] LABS: ALT 38 U/L (4-49); AST 27 U/L (17-59); African American GFR (CKD) >90 (>60 ml/min/1.73 sqM); Albumin 4.1 g/dL (3.5-5.0); Alkaline Phosphatase 98 U/L (38-126); Anion Gap 10 mmol/L; Blood Urea Nitrogen 11 mg/dL (9-20); Calcium 9.6 mg/dL (8.4-10.2); Carbon Dioxide 18 mmol/L (22-30); Chloride 107 mmol/L (98-107); Glucose 288 mg/dL (74-99); Non-African American GFR(CKD) >90 (>60 ml/min/1.73 sqM); Sodium 135 mmol/L (137-145); Total Bilirubin 0.9 mg/dL (0.2-1.3); Total Protein 6.7 g/dL (6.3-8.2)
[2023-12-25 11:51] LABS: Glucose,Whole Blood 279 mg/dL (70-110)
--- NOTE | 2023-12-25 12:01 | P.DS ---
Providers Date of admission: 12/23/23 19:37 Expected date of discharge: 12/25/23 Attending physician: Rosina Gibbs Primary care physician: Physician Nonstaff Hospital Course: Discharge diagnoses; Hyperglycemia New onset diabetes mellitus Acute pancreatitis Diabetic ketoacidosis Hyponatremia Hyperkalemia Hypertension Psoriasis Hospital course; patient is a 43-year-old gentleman no significant past medical history presents the ER for epigastric pain for the last 1 week. Patient stated that he has been having intermittent epigastric pain for the last week. Patient also endorsing that he has been thirsty and drinking a lot of water and having increased frequency of urination. There was no complaint of fever or chills. There was no complaint nausea or vomiting. Patient states he feels generalized weakness and does not feel his usual self. Patient went to an urgent care where he was found to have elevated blood sugar of more than 500. Patient no prior history of diabetes. Because of hyperglycemia, patient was sent to the ER Initial lab work done in the ER showed WBC 14.6, hemoglobin 18.4, platelet count 358, sodium 132, potassium 5.2, BUN 19, creatinine 0.98, anion gap 22, carbon oxide 12, magnesium 1.9, bilirubin 1.3, AST 42, ALT 53, lipase 409 EKG done in the ER showed heart rate of 114, no ST segment elevation or depression seen, no T-wave inversions seen. Chest x-ray done in the ER showed no acute cardiopulmonary process Patient admitted to internal medicine service 12/25. Patient seen and examined. Anion gap closed. Patient currently on Levemir. Ordered SADE and C-peptide levels. Patient being discharged on metformin and Jardiance as patient is not very keen to take any insulin. PHYSICAL EXAMINATION: GENERAL: The patient is alert and oriented x3, not in any acute distress. Well developed, well nourished. HEENT: Pupils are round and equally reacting to light. EOMI. No scleral icterus. No conjunctival pallor. Normocephalic, atraumatic. No pharyngeal erythema. No thyromegaly. CARDIOVASCULAR: S1 and S2 present. No murmurs, rubs, or gallops. PULMONARY: Chest is clear to auscultation, no wheezing or crackles. ABDOMEN: Soft, nontender, nondistended, normoactive bowel sounds. No palpable organomegaly. MUSCULOSKELETAL: No joint swelling or deformity. EXTREMITIES: No cyanosis, clubbing, or pedal edema. NEUROLOGICAL: Gross neurological examination did not reveal any focal deficits. SKIN: No rashes. Dictation was produced using [employer] dictation software. please excuse any grammatical, word or spelling errors. Patient Condition at Discharge: Good Plan - Discharge Summary New Discharge Prescriptions: New metFORMIN HCL 500 mg PO BID 30 Days #60 ml Empagliflozin [Jardiance] 10 mg PO DAILY #30 tablet Continue ALPRAZolam [Xanax] 1 mg PO DAILY PRN PRN Reason: Anxiety Cetirizine HCl/Pseudoephedrine [Zyrtec-D Tablet] 1 tab PO DAILY Pantoprazole Sodium 20 mg PO BID PRN PRN Reason: ACID REFLUX Nystatin 100,000 Unit/gm Powd [Mycostatin Powder] 1 applic TOPICAL BID PRN PRN Reason: Rash Albuterol Inhaler [Ventolin Hfa Inhaler] 1 - 2 puff INHALATION RT-Q6H PRN PRN Reason: Shortness Of Breath lisinopriL [Zestril] 20 mg PO HS Ruxolitinib Phosphate [Opzelura] 1 applic TOPICAL BID PRN PRN Reason: SKIN ISSUES Apremilast [Otezla] 30 mg PO BID rOPINIRole HCL [Requip] See Taper PO DIRECTED Betamethasone Dipropionate [Betamethasone Dipropionate 0.05%] 1 applic TOPICAL BID PRN PRN Reason: Rash Discharge Medication List ALPRAZolam [Xanax] 1 mg PO DAILY PRN 08/25/18 [History] Cetirizine HCl/Pseudoephedrine [Zyrtec-D Tablet] 1 tab PO DAILY 12/02/18 [History] Albuterol Inhaler [Ventolin Hfa Inhaler] 1 - 2 puff INHALATION RT-Q6H PRN 12/23/23 [History] Apremilast [Otezla] 30 mg PO BID 12/23/23 [History] Betamethasone Dipropionate [Betamethasone Dipropionate 0.05%] 1 applic TOPICAL BID PRN 12/23/23 [History] Nystatin 100,000 Unit/gm Powd [Mycostatin Powder] 1 applic TOPICAL BID PRN 12/23/23 [History] Pantoprazole Sodium 20 mg PO BID PRN 12/23/23 [History] Ruxolitinib Phosphate [Opzelura] 1 applic TOPICAL BID PRN 12/23/23 [History] lisinopriL [Zestril] 20 mg PO HS 12/23/23 [History] rOPINIRole HCL [Requip] See Taper PO DIRECTED 12/23/23 [History] Empagliflozin [Jardiance] 10 mg PO DAILY #30 tablet 12/25/23 [Rx] metFORMIN HCL 500 mg PO BID 30 Days #60 ml 12/25/23 [Rx] Follow up Appointment(s)/Referral(s): Nonstaff,Physician [Primary Care Provider] - 1-2 days Aleyda Hough [STAFF PHYSICIAN] - 1 Week Activity/Diet/Wound Care/Special Instructions: Glucometer Rx sent to [facility] pharmacy, please have it delivered to bedside prior to d/c. Discharge/Stand Alone Forms: Who Do I Call?, PH Area PCPs Discharge Disposition: HOME SELF-CARE
[2023-12-25] MEDS ORDERED: INSULIN DETEMIR (LEVEMIR) 100 UNIT/ML SYR SQ SCH (21:00)
== END 2023-12-25 14:26 | disposition home or self-care (01) | DRG 637 ==
LOC: EC 16:47 → 3SCARD 19:37
PROVIDERS: ADMIT Hospitalist; ATTEND Hospitalist
DX: E11.10 Type 2 diabetes mellitus with ketoacidosis without coma (principal); K85.90 Acute pancreatitis without necrosis or infection, unspecified; E87.1 Hypo-osmolality and hyponatremia; I16.0 Hypertensive urgency; L40.9 Psoriasis, unspecified; I10 Essential (primary) hypertension; E66.9 Obesity, unspecified; Z68.36 Body mass index [BMI] 36.0-36.9, adult; G25.81 Restless legs syndrome; E87.5 Hyperkalemia; Z88.1 Allergy status to other antibiotic agents; Z91.040 Latex allergy status; Z79.899 Other long term (current) drug therapy; Z71.3 Dietary counseling and surveillance
CPT/HCPCS: 36415; 71046; 76700; 80048; 80051; 80053; 80061; 81003; 82009; 82565; 82947; 83036; 83519; 83690; 83735; 84100; 84484; 84520; 84681; 85025; 85610; 85730; 93005; 96360; 96361; 99291